=== PATIENT | male | born 1955 | race African-American/Black ===

== ENCOUNTER 2019-05-09 20:50 | Inpatient (IN) | payer OTHER ==
[2019-05-09] MEDS ORDERED: NACL 0.9% 3 ML SYG IV (22:00)
[2019-05-09] MEDS ORDERED: BISACODYL (EC) 5 MG TAB PO (22:00)
[2019-05-09] MEDS ORDERED: DOCUSATE SODIUM 100 MG CAP PO (22:00)
[2019-05-09] MEDS: HYDROmorphONE 0.5 MG/0.5 ML SYG IV (22:48)
[2019-05-09] MEDS: SOD CHLORIDE 0.9% 1,000 ML IV (22:48)
[2019-05-09] MEDS: VANCOMYCIN 1 GM (PMX) 250 ML IVPB (22:49)
[2019-05-09 23:20] LABS: ABNORMAL IP MESSAGE 1; HEMATOCRIT 35.8 % (42.0-52.0); HEMOGLOBIN 11.9 g/dl (14.0-18.0); MEAN CORPUSCULAR HEMOGLOBIN 29.7 pg (29.0-33.0); MEAN CORPUSCULAR HGB CONC 33.2 g/dl (32.0-37.0); MEAN CORPUSCULAR VOLUME 89.3 fl (82.0-101.0); MEAN PLATELET VOLUME 10.5 fl (7.4-10.4); PLATELET COUNT 163 10^3/UL (140-415); POSITIVE DIFF @See below; RED BLOOD COUNT 4.01 10^6/ul (4.70-6.10); RED CELL DISTRIBUTION WIDTH 15.7 % (11.5-14.5)
[2019-05-09 23:25] LABS: ADD MAN DIFF? YES
[2019-05-09 23:44] LABS: ETHANOL < 10.0 mg/dl (0-0)
[2019-05-09 23:50] LABS: ALANINE AMINOTRANSFERASE 94 IU/L (13-69); ALBUMIN 2.8 g/dl (3.3-4.9); ALBUMIN/GLOBULIN RATIO 1.07; ALKALINE PHOSPHATASE 59 IU/L (42-121); ANION GAP 7 (5-13); ASPARTATE AMINO TRANSFERASE 105 IU/L (15-46); BILIRUBIN,INDIRECT 0.4 mg/dl (0-1.1); BILIRUBIN,TOTAL 0.4 mg/dl (0.2-1.3); BLOOD UREA NITROGEN 35 mg/dl (7-20); CALCIUM 7.2 mg/dl (8.4-10.2); CARBON DIOXIDE 21 mmol/L (21-31); CHLORIDE 109 mmol/L (97-110); CREATININE 1.37 mg/dl (0.61-1.24); Estimated GFR > 60 mL/min (>60); GLUCOSE 86 mg/dl (70-220); MAGNESIUM 2.4 mg/dl (1.7-2.5); POTASSIUM 3.6 mmol/L (3.5-5.1); SODIUM 137 mmol/L (135-144); TOTAL PROTEIN 5.4 g/dl (6.1-8.1)
[2019-05-09 23:51] LABS: ADD UMIC YES; UR ASCORBIC ACID NEGATIVE (NEGATIVE); UR BILIRUBIN (Dip) NEGATIVE (NEGATIVE); UR BLOOD (Dip) 2+ mg/dL (NEGATIVE); UR CLARITY CLOUDY (CLEAR); UR COLOR YELLOW (YELLOW); UR GLUCOSE (Dip) NEGATIVE (NEGATIVE); UR KETONES (Dip) TRACE mg/dL (NEGATIVE); UR LEUKOCYTE ESTERASE (Dip) NEGATIVE Leu/ul (NEGATIVE); UR MUCUS FEW /HPF (NONE SEEN); UR NITRITE (Dip) NEGATIVE (NEGATIVE); UR RBC 0 /HPF (0-5); UR SPECIFIC GRAVITY (Dip) 1.009 (1.003-1.030); UR TOTAL PROTEIN (Dip) NEGATIVE (NEGATIVE); UR UROBILINOGEN (Dip) NEGATIVE (NEGATIVE); UR WBC 2 /HPF (0-5)
[2019-05-10 00:07] LABS: AMPHETAMINE/METHAMPHETAMINE Positive (NEGATIVE); ANISOCYTOSIS 2+ (0-0); BAND NEUTROPHILS #M 3.2 10^3/ul (0.0-0.6); BAND NEUTROPHILS % (M) 25 % (0-4); BARBITURATES Negative (NEGATIVE); BENZODIAZEPINES Negative (NEGATIVE); COCAINE Negative (NEGATIVE); GIANT THROMBO% (M) 1 % (0-0); LYMPHOCYTES #M 0.1 10^3/ul (0.8-2.9); LYMPHOCYTES % (M) 1 % (15-51); MONOCYTE #M 1.1 10^3/ul (0.3-0.9); MONOCYTES % (M) 9 % (0-11); OPIATES Positive (NEGATIVE); PLATELET ESTIMATE NORMAL; POIKILOCYTOSIS 3+ (0-0); POLYCHROMASIA 3+ (0-0); SEG NEUT #M 8.9 10^3/ul (1.6-7.5); SEGMENTED NEUTROPHILS (M) % 65 % (39-77); SMUDGE%M 3 % (0-0)
[2019-05-10 00:08] LABS: CANNABINOIDS Negative (NEGATIVE)
[2019-05-10 00:16] LABS: CREATINE KINASE 4278 IU/L (23-200)
[2019-05-10] MEDS ORDERED: LORAZEPAM 2 MG INJ IV (00:30)
[2019-05-10] MEDS: SOD CHLORIDE 0.9% 500 ML IV (02:39)
[2019-05-10] MEDS: PIPER-TAZO 3.375 GM IV (PMX) 100 ML IVPB ×6 (03:22→23:16)
[2019-05-10] MEDS: SOD CHLORIDE 0.9% 1,000 ML IV ×2 (03:50→08:22)
[2019-05-10] MEDS ORDERED: VANCOMYCIN IV PER PHARMACY XX (04:00)
[2019-05-10] MEDS: ALBUMIN HUMAN 25% 100 ML IV ×2 (05:45→07:00)
[2019-05-10] MEDS: HEPARIN 5,000 UNIT/1 ML VIAL SC ×3 (05:54→21:35)
[2019-05-10 06:23] LABS: ADD MAN DIFF? NO
[2019-05-10 06:27] LABS: BASOPHILS % 0.2 % (0.0-2.0); EOSINOPHILS # 0.1 10^3/ul (0.0-0.5); EOSINOPHILS % 0.8 % (0.0-7.0); HEMATOCRIT 34.8 % (42.0-52.0); HEMOGLOBIN 11.5 g/dl (14.0-18.0); LYMPHOCYTES # 0.6 10^3/ul (0.8-2.9); MEAN CORPUSCULAR HEMOGLOBIN 29.7 pg (29.0-33.0); MEAN CORPUSCULAR VOLUME 89.9 fl (82.0-101.0); MEAN PLATELET VOLUME 10.6 fl (7.4-10.4); MONOCYTE # 1.3 10^3/ul (0.3-0.9); MONOCYTES % 10.9 % (0.0-11.0); NEUTROPHIL # 10.2 10^3/ul (1.6-7.5); NEUTROPHILS % 82.6 % (39.0-77.0); PLATELET COUNT 165 10^3/UL (140-415); POSITIVE DIFF @See below; RED BLOOD COUNT 3.87 10^6/ul (4.70-6.10); RED CELL DISTRIBUTION WIDTH 15.8 % (11.5-14.5)
[2019-05-10 06:27] LABS: WHITE BLOOD COUNT 12.3 10^3/ul (4.8-10.8)
[2019-05-10 06:51] LABS: ALANINE AMINOTRANSFERASE 87 IU/L (13-69); ALBUMIN 2.7 g/dl (3.3-4.9); ALBUMIN/GLOBULIN RATIO 0.93; ALKALINE PHOSPHATASE 56 IU/L (42-121); ANION GAP 3 (5-13); ASPARTATE AMINO TRANSFERASE 83 IU/L (15-46); BILIRUBIN,INDIRECT 0.5 mg/dl (0-1.1); BILIRUBIN,TOTAL 0.5 mg/dl (0.2-1.3); BLOOD UREA NITROGEN 27 mg/dl (7-20); CALCIUM 7.3 mg/dl (8.4-10.2); CARBON DIOXIDE 24 mmol/L (21-31); CHLORIDE 110 mmol/L (97-110); CHOL/HDL RATIO 4.6 RATIO; CHOLESTEROL 116 mg/dl (100-200); CREATININE 1.32 mg/dl (0.61-1.24); Estimated GFR > 60 mL/min (>60); GLUCOSE 94 mg/dl (70-220); HDL CHOLESTEROL 25 mg/dl (30-78); LDL CHOLESTEROL,CALCULATED 42 mg/dl; MAGNESIUM 2.4 mg/dl (1.7-2.5); POTASSIUM 3.4 mmol/L (3.5-5.1); SODIUM 137 mmol/L (135-144); TOTAL PROTEIN 5.6 g/dl (6.1-8.1); TRIGLYCERIDES 247 mg/dl (0-149)
[2019-05-10 07:00] LABS: HEMOGLOBIN A1C 5.4 % (0-5.9)
[2019-05-10 07:14] LABS: THYROID STIMULATING HORMONE 0.684 MIU/L (0.465-4.680)
[2019-05-10] MEDS ORDERED: ENOXAPARIN 40 MG/0.4 ML SYG SC (09:00)
[2019-05-10 10:16] LABS: ANISOCYTOSIS 1+ (0-0); BAND NEUTROPHILS #M 3.4 10^3/ul (0.0-0.6); BAND NEUTROPHILS % (M) 28 % (0-4); GIANT THROMBO% (M) 5 % (0-0); LYMPHOCYTES #M 0.9 10^3/ul (0.8-2.9); LYMPHOCYTES % (M) 8 % (15-51); MONOCYTE #M 0.4 10^3/ul (0.3-0.9); MONOCYTES % (M) 4 % (0-11); PLATELET ESTIMATE NORMAL; REACTIVE LYMPHOCYTES #M 0.2 10^3/ul (0.0-0.0); REACTIVE LYMPHOCYTES% (M) 2 % (0-0); SEG NEUT #M 7.6 10^3/ul (1.6-7.5); SEGMENTED NEUTROPHILS (M) % 58 % (39-77); SMUDGE%M 4 % (0-0)
[2019-05-10 10:30] LABS: CREATINE KINASE 1555 IU/L (23-200)
[2019-05-10] MEDS: morphine 2 MG INJ IV ×2 (13:22→19:38)
[2019-05-10] MEDS ORDERED: LORAZEPAM 0.5 MG TAB PO (14:00)
[2019-05-10] MEDS: THIAMINE 100 MG TAB PO (14:32)
[2019-05-10] MEDS: FOLIC ACID 1 MG TAB PO (14:33)
[2019-05-10] MEDS: POTASSIUM CHLORIDE 10 MEQ in SOD CHLORIDE 0.9% 1,000 ML IV ×3 (14:33→22:03)
[2019-05-10] MEDS: POTASSIUM CHLORIDE (SR) 20 MEQ TAB PO (14:33)
[2019-05-10] MEDS: VANCOMYCIN 750 MG (PMX) 250 ML IVPB (15:16)
[2019-05-10] MEDS ORDERED: BENZOCAINE 10% 7 GM GEL MM (21:00)
[2019-05-10 22:51] LABS: CREATINE KINASE 1181 IU/L (23-200)
[2019-05-10] MEDS: BENZOCAINE 10% 7 GM GEL MM (23:00)
[2019-05-11] MEDS: VANCOMYCIN 750 MG (PMX) 250 ML IVPB ×2 (03:11→15:36)
[2019-05-11] MEDS: POTASSIUM CHLORIDE 10 MEQ in SOD CHLORIDE 0.9% 1,000 ML IV ×4 (05:10→20:46)
[2019-05-11] MEDS: PIPER-TAZO 3.375 GM IV (PMX) 100 ML IVPB ×5 (05:15→23:39)
[2019-05-11] MEDS: HEPARIN 5,000 UNIT/1 ML VIAL SC ×2 (05:32→15:48)
[2019-05-11] MEDS: ACETAMINOPHEN 325 MG TAB PO (05:41)
[2019-05-11 07:10] LABS: ADD MAN DIFF? NO
[2019-05-11 07:23] LABS: BASOPHILS % 0.2 % (0.0-2.0); EOSINOPHILS # 0.3 10^3/ul (0.0-0.5); EOSINOPHILS % 2.3 % (0.0-7.0); HEMATOCRIT 31.1 % (42.0-52.0); HEMOGLOBIN 10.3 g/dl (14.0-18.0); LYMPHOCYTES # 1.1 10^3/ul (0.8-2.9); LYMPHOCYTES % 9.1 % (15.0-51.0); MEAN CORPUSCULAR HEMOGLOBIN 29.7 pg (29.0-33.0); MEAN CORPUSCULAR HGB CONC 33.1 g/dl (32.0-37.0); MEAN CORPUSCULAR VOLUME 89.6 fl (82.0-101.0); MEAN PLATELET VOLUME 10.7 fl (7.4-10.4); MONOCYTE # 1.2 10^3/ul (0.3-0.9); MONOCYTES % 9.9 % (0.0-11.0); NEUTROPHIL # 9.4 10^3/ul (1.6-7.5); NEUTROPHILS % 77.8 % (39.0-77.0); PLATELET COUNT 151 10^3/UL (140-415); POSITIVE DIFF @See below; RED BLOOD COUNT 3.47 10^6/ul (4.70-6.10); RED CELL DISTRIBUTION WIDTH 15.9 % (11.5-14.5)
[2019-05-11 07:41] LABS: ALANINE AMINOTRANSFERASE 63 IU/L (13-69); ALBUMIN 2.9 g/dl (3.3-4.9); ALBUMIN/GLOBULIN RATIO 1.16; ALKALINE PHOSPHATASE 43 IU/L (42-121); ANION GAP 3 (5-13); ASPARTATE AMINO TRANSFERASE 47 IU/L (15-46); BILIRUBIN,INDIRECT 1.1 mg/dl (0-1.1); BILIRUBIN,TOTAL 1.1 mg/dl (0.2-1.3); BLOOD UREA NITROGEN 12 mg/dl (7-20); CALCIUM 8.1 mg/dl (8.4-10.2); CARBON DIOXIDE 24 mmol/L (21-31); CHLORIDE 111 mmol/L (97-110); CREATININE 1.15 mg/dl (0.61-1.24); Estimated GFR > 60 mL/min (>60); GLUCOSE 94 mg/dl (70-220); POTASSIUM 3.6 mmol/L (3.5-5.1); SODIUM 138 mmol/L (135-144); TOTAL PROTEIN 5.4 g/dl (6.1-8.1)
[2019-05-11] MEDS: FOLIC ACID 1 MG TAB PO (09:49)
[2019-05-11] MEDS: THIAMINE 100 MG TAB PO (09:49)
[2019-05-11 10:46] LABS: ANISOCYTOSIS 1+ (0-0); BAND NEUTROPHILS #M 1.5 10^3/ul (0.0-0.6); BAND NEUTROPHILS % (M) 13 % (0-4); EOSINOPHILS % (M) 2 % (0-7); LYMPHOCYTES #M 1.6 10^3/ul (0.8-2.9); LYMPHOCYTES % (M) 14 % (15-51); MONOCYTE #M 0.9 10^3/ul (0.3-0.9); MONOCYTES % (M) 8 % (0-11); MYELOCYTES #M 0.1 10^3/ul (0.0-0.0); MYELOCYTES % (M) 1 % (0-0); PLATELET ESTIMATE NORMAL; REACTIVE LYMPHOCYTES #M 0.1 10^3/ul (0.0-0.0); REACTIVE LYMPHOCYTES% (M) 1 % (0-0); SEG NEUT #M 7.6 10^3/ul (1.6-7.5); SEGMENTED NEUTROPHILS (M) % 62 % (39-77); SMUDGE%M 46 % (0-0)
[2019-05-11 11:44] LABS: CREATINE KINASE 695 IU/L (23-200)
[2019-05-11] MEDS ORDERED: ZINC SULFATE 220 MG CAP (18:20)
[2019-05-11] MEDS: ZINC SULFATE 220 MG CAP PO (18:23)
[2019-05-11] MEDS: NICOTINE (14 MG/24 HR) PATCH TRANSDERM (18:30)
[2019-05-11] MEDS: morphine 2 MG INJ IV ×2 (18:50→23:23)
[2019-05-11] MEDS: ISOSORBIDE DINITRATE 10 MG TAB PO (20:45)
[2019-05-11] MEDS: FAMOTIDINE 20 MG TAB PO (20:45)
[2019-05-11] MEDS: TAMSULOSIN (SR) 0.4 MG CAP PO (20:45)
[2019-05-11] MEDS ORDERED: ISOSORBIDE PO (21:00)
[2019-05-12] MEDS: VANCOMYCIN 750 MG (PMX) 250 ML IVPB ×2 (04:30→15:39)
[2019-05-12 04:59] LABS: ADD MAN DIFF? NO
[2019-05-12 05:04] LABS: BASOPHILS % 0.3 % (0.0-2.0); EOSINOPHILS # 0.4 10^3/ul (0.0-0.5); EOSINOPHILS % 4.3 % (0.0-7.0); HEMATOCRIT 30.5 % (42.0-52.0); HEMOGLOBIN 10.1 g/dl (14.0-18.0); LYMPHOCYTES # 1.9 10^3/ul (0.8-2.9); LYMPHOCYTES % 19.4 % (15.0-51.0); MEAN CORPUSCULAR HEMOGLOBIN 29.5 pg (29.0-33.0); MEAN CORPUSCULAR HGB CONC 33.1 g/dl (32.0-37.0); MEAN CORPUSCULAR VOLUME 89.2 fl (82.0-101.0); MEAN PLATELET VOLUME 10.6 fl (7.4-10.4); MONOCYTE # 1.2 10^3/ul (0.3-0.9); MONOCYTES % 11.8 % (0.0-11.0); NEUTROPHIL # 6.3 10^3/ul (1.6-7.5); NEUTROPHILS % 63.6 % (39.0-77.0); PLATELET COUNT 162 10^3/UL (140-415); POSITIVE DIFF @See below; RED BLOOD COUNT 3.42 10^6/ul (4.70-6.10); RED CELL DISTRIBUTION WIDTH 15.7 % (11.5-14.5)
[2019-05-12 05:04] LABS: WHITE BLOOD COUNT 9.9 10^3/ul (4.8-10.8)
[2019-05-12 05:21] LABS: INR 0.93; PROTIME 12.6 Sec (11.9-14.9)
[2019-05-12] MEDS: PIPER-TAZO 3.375 GM IV (PMX) 100 ML IVPB ×3 (05:42→18:40)
[2019-05-12 05:43] LABS: ALANINE AMINOTRANSFERASE 57 IU/L (13-69); ALBUMIN 2.8 g/dl (3.3-4.9); ALBUMIN/GLOBULIN RATIO 1.07; ALKALINE PHOSPHATASE 43 IU/L (42-121); ANION GAP 2 (5-13); ASPARTATE AMINO TRANSFERASE 36 IU/L (15-46); BILIRUBIN,INDIRECT 0.8 mg/dl (0-1.1); BILIRUBIN,TOTAL 0.8 mg/dl (0.2-1.3); BLOOD UREA NITROGEN 6 mg/dl (7-20); CALCIUM 8.4 mg/dl (8.4-10.2); CARBON DIOXIDE 26 mmol/L (21-31); CHLORIDE 112 mmol/L (97-110); CREATININE 1.02 mg/dl (0.61-1.24); Estimated GFR > 60 mL/min (>60); GLUCOSE 91 mg/dl (70-220); POTASSIUM 3.5 mmol/L (3.5-5.1); SODIUM 140 mmol/L (135-144); TOTAL PROTEIN 5.4 g/dl (6.1-8.1)
[2019-05-12 05:44] LABS: PHOSPHORUS 2.2 mg/dl (2.5-4.9)
[2019-05-12] MEDS: ZINC SULFATE 220 MG CAP PO (09:54)
[2019-05-12] MEDS: FAMOTIDINE 20 MG TAB PO (09:54)
[2019-05-12] MEDS: THIAMINE 100 MG TAB PO (09:54)
[2019-05-12] MEDS: FOLIC ACID 1 MG TAB PO (09:54)
[2019-05-12] MEDS: ASPIRIN (EC) 81 MG TAB PO (09:55)
[2019-05-12] MEDS: ENOXAPARIN 30 MG/0.3 ML SYG SC (10:01)
[2019-05-12] MEDS: POTASSIUM CHLORIDE 10 MEQ in SOD CHLORIDE 0.9% 1,000 ML IV (10:13)
[2019-05-12] MEDS: ISOSORBIDE DINITRATE 10 MG TAB PO ×3 (10:13→20:26)
[2019-05-12] MEDS: morphine 2 MG INJ IV (15:33)
[2019-05-12] MEDS: NICOTINE (14 MG/24 HR) PATCH TRANSDERM (18:30)
[2019-05-12] MEDS: TAMSULOSIN (SR) 0.4 MG CAP PO (20:25)
[2019-05-12] MEDS: PSYLLIUM 28% PACKET PO (20:30)
[2019-05-13] MEDS: PIPER-TAZO 3.375 GM IV (PMX) 100 ML IVPB ×5 (00:29→23:27)
[2019-05-13] MEDS: VANCOMYCIN 1 GM 250 ML IVPB ×2 (05:30→16:33)
[2019-05-13 05:34] LABS: WHITE BLOOD COUNT 10.7 10^3/ul (4.8-10.8)
[2019-05-13 05:34] LABS: ABNORMAL IP MESSAGE 1; HEMATOCRIT 31.2 % (42.0-52.0); HEMOGLOBIN 10.2 g/dl (14.0-18.0); MEAN CORPUSCULAR HEMOGLOBIN 29.7 pg (29.0-33.0); MEAN CORPUSCULAR HGB CONC 32.7 g/dl (32.0-37.0); MEAN PLATELET VOLUME 11.2 fl (7.4-10.4); PLATELET COUNT 198 10^3/UL (140-415); POSITIVE DIFF @See below; RED BLOOD COUNT 3.43 10^6/ul (4.70-6.10); RED CELL DISTRIBUTION WIDTH 15.6 % (11.5-14.5)
[2019-05-13 06:04] LABS: ALANINE AMINOTRANSFERASE 63 IU/L (13-69); ALBUMIN 2.8 g/dl (3.3-4.9); ALBUMIN/GLOBULIN RATIO 1.07; ALKALINE PHOSPHATASE 51 IU/L (42-121); ANION GAP 1 (5-13); ASPARTATE AMINO TRANSFERASE 37 IU/L (15-46); BILIRUBIN,INDIRECT 0.6 mg/dl (0-1.1); BILIRUBIN,TOTAL 0.6 mg/dl (0.2-1.3); BLOOD UREA NITROGEN 5 mg/dl (7-20); CALCIUM 8.2 mg/dl (8.4-10.2); CARBON DIOXIDE 29 mmol/L (21-31); CHLORIDE 109 mmol/L (97-110); CREATININE 0.86 mg/dl (0.61-1.24); Estimated GFR > 60 mL/min (>60); GLUCOSE 97 mg/dl (70-220); POTASSIUM 3.3 mmol/L (3.5-5.1); SODIUM 139 mmol/L (135-144); TOTAL PROTEIN 5.4 g/dl (6.1-8.1)
[2019-05-13 06:10] LABS: ADD MAN DIFF? YES
[2019-05-13 07:59] LABS: BAND NEUTROPHILS #M 0.1 10^3/ul (0.0-0.6); BAND NEUTROPHILS % (M) 1 % (0-4); BASOPHIL #M 0.1 10^3/ul (0.0-0.0); BASOPHILS % (M) 1 % (0-2); BURR CELLS 1+ (0-0); EOSINOPHILS % (M) 3 % (0-7); GIANT THROMBO% (M) 2 % (0-0); LYMPHOCYTES #M 2.7 10^3/ul (0.8-2.9); LYMPHOCYTES % (M) 26 % (15-51); MONOCYTE #M 1.9 10^3/ul (0.3-0.9); MONOCYTES % (M) 18 % (0-11); PLATELET ESTIMATE NORMAL; POIKILOCYTOSIS 1+ (0-0); REACTIVE LYMPHOCYTES #M 0.2 10^3/ul (0.0-0.0); REACTIVE LYMPHOCYTES% (M) 2 % (0-0); SEG NEUT #M 5.3 10^3/ul (1.6-7.5); SEGMENTED NEUTROPHILS (M) % 49 % (39-77); SMUDGE%M 4 % (0-0)
[2019-05-13] MEDS: ASPIRIN (EC) 81 MG TAB PO (09:58)
[2019-05-13] MEDS: ENOXAPARIN 30 MG/0.3 ML SYG SC (09:58)
[2019-05-13] MEDS: PSYLLIUM 28% PACKET PO ×2 (09:58→21:04)
[2019-05-13] MEDS: THIAMINE 100 MG TAB PO (09:58)
[2019-05-13] MEDS: FOLIC ACID 1 MG TAB PO (09:59)
[2019-05-13] MEDS: FAMOTIDINE 20 MG TAB PO (09:59)
[2019-05-13] MEDS: ZINC SULFATE 220 MG CAP PO (09:59)
[2019-05-13] MEDS: ISOSORBIDE DINITRATE 10 MG TAB PO ×2 (09:59→21:03)
[2019-05-13] MEDS: POTASSIUM CHLORIDE (SR) 20 MEQ TAB PO (12:04)
[2019-05-13] MEDS: morphine 2 MG INJ IV (14:00)
[2019-05-13] MEDS: CEPASTAT LOZENGE MT ×2 (16:49→18:08)
[2019-05-13] MEDS: NICOTINE (14 MG/24 HR) PATCH TRANSDERM (18:09)
[2019-05-13] MEDS: TAMSULOSIN (SR) 0.4 MG CAP PO (21:03)
[2019-05-13] MEDS: ACETAMINOPHEN 325 MG TAB PO (21:46)
[2019-05-14] MEDS: VANCOMYCIN 1 GM 250 ML IVPB ×2 (03:46→16:40)
[2019-05-14] MEDS: PIPER-TAZO 3.375 GM IV (PMX) 100 ML IVPB ×4 (05:58→23:55)
[2019-05-14] MEDS: FAMOTIDINE 20 MG TAB PO (09:43)
[2019-05-14] MEDS: FOLIC ACID 1 MG TAB PO (09:43)
[2019-05-14] MEDS: ZINC SULFATE 220 MG CAP PO (09:43)
[2019-05-14] MEDS: ASPIRIN (EC) 81 MG TAB PO (09:43)
[2019-05-14] MEDS: THIAMINE 100 MG TAB PO (09:44)
[2019-05-14] MEDS: ISOSORBIDE DINITRATE 10 MG TAB PO ×2 (09:44→20:50)
[2019-05-14] MEDS: PSYLLIUM 28% PACKET PO ×2 (09:45→20:52)
[2019-05-14] MEDS: ENOXAPARIN 30 MG/0.3 ML SYG SC (09:51)
[2019-05-14] MEDS: ACETAMINOPHEN 325 MG TAB PO (15:15)
[2019-05-14 16:52] LABS: VANCOMYCIN,TROUGH 13.2 ug/ml (10.0-20.0)
[2019-05-14] MEDS: NICOTINE (14 MG/24 HR) PATCH TRANSDERM (18:30)
[2019-05-14] MEDS: morphine 2 MG INJ IV (20:02)
[2019-05-14] MEDS: TAMSULOSIN (SR) 0.4 MG CAP PO (20:51)
[2019-05-14] MEDS: AL HYDROX/MG HYDROX/SIMETH 30 ML CUP PO (23:55)
[2019-05-15] MEDS: ACETAMINOPHEN 325 MG TAB PO (00:01)
[2019-05-15] MEDS: VANCOMYCIN 1 GM 250 ML IVPB ×2 (04:02→15:11)
[2019-05-15 05:34] LABS: ANION GAP 5 (5-13); BLOOD UREA NITROGEN 6 mg/dl (7-20); CALCIUM 8.6 mg/dl (8.4-10.2); CARBON DIOXIDE 29 mmol/L (21-31); CHLORIDE 108 mmol/L (97-110); CREATININE 1.01 mg/dl (0.61-1.24); Estimated GFR > 60 mL/min (>60); GLUCOSE 96 mg/dl (70-220); MAGNESIUM 2.2 mg/dl (1.7-2.5); PHOSPHORUS 3.8 mg/dl (2.5-4.9); SODIUM 142 mmol/L (135-144)
[2019-05-15 05:56] LABS: POTASSIUM 3.4 mmol/L (3.5-5.1)
[2019-05-15] MEDS: PIPER-TAZO 3.375 GM IV (PMX) 100 ML IVPB ×3 (06:12→18:00)
[2019-05-15] MEDS: ENOXAPARIN 30 MG/0.3 ML SYG SC (08:00)
[2019-05-15] MEDS: ISOSORBIDE DINITRATE 10 MG TAB PO ×2 (08:37→22:37)
[2019-05-15] MEDS: THIAMINE 100 MG TAB PO (08:37)
[2019-05-15] MEDS: FOLIC ACID 1 MG TAB PO (08:37)
[2019-05-15] MEDS: FAMOTIDINE 20 MG TAB PO (08:38)
[2019-05-15] MEDS: ZINC SULFATE 220 MG CAP PO (08:38)
[2019-05-15] MEDS: PSYLLIUM 28% PACKET PO ×2 (08:39→21:00)
[2019-05-15] MEDS: ASPIRIN (EC) 81 MG TAB PO (09:00)
[2019-05-15] MEDS: morphine 2 MG INJ IV ×2 (10:45→16:35)
[2019-05-15] MEDS: POTASSIUM CHLORIDE (SR) 20 MEQ TAB PO (14:51)
[2019-05-15] MEDS: NICOTINE (14 MG/24 HR) PATCH TRANSDERM (18:30)
[2019-05-15] MEDS ORDERED: PROPOFOL 20 ML (18:59)
[2019-05-15] MEDS ORDERED: MIDAZOLAM 1 MG/ML 2 ML INJ (18:59)
[2019-05-15] MEDS ORDERED: LIDOCAINE 2% (SDV) 5 ML INJ (18:59)
[2019-05-15] MEDS ORDERED: PROPOFOL 200 MG INJ (19:00)
[2019-05-15] MEDS ORDERED: MINERAL OIL LIGHT 10 ML VIAL (19:05)
[2019-05-15] MEDS ORDERED: ONDANSETRON 4 MG INJ (19:44)
[2019-05-15] MEDS ORDERED: EPHEDrine 25 MG/5 ML SYG (19:44)
[2019-05-15] MEDS ORDERED: PHENYLephrine (100 MCG/ML) 10ML SYG (19:44)
[2019-05-15] MEDS ORDERED: DEXAMETHASONE 4 MG/ML 5 ML INJ (19:44)
[2019-05-15] MEDS ORDERED: FAMOTIDINE 20 MG INJ (19:45)
[2019-05-15] MEDS ORDERED: HYDROmorphONE 2 MG/ML SYG (19:51)
[2019-05-15] MEDS: LIDOCAINE 1% (MPF) 30 ML INJ (20:05)
[2019-05-15] MEDS ORDERED: DIPHENHYDRAMINE 50 MG INJ IV (21:00)
[2019-05-15] MEDS ORDERED: HYDROmorphONE 1 MG/5 ML IV SYRINGE IV ×3 (21:00)
[2019-05-15] MEDS ORDERED: FENTAnyl 50 MCG/ML VIAL IV ×3 (21:00)
[2019-05-15] MEDS ORDERED: ONDANSETRON 4 MG INJ IV (21:00)
[2019-05-15] MEDS ORDERED: hydrALAzine 20 MG INJ IV (21:00)
[2019-05-15] MEDS ORDERED: LABETALOL HCL 20MG INJ IV (21:00)
[2019-05-15] MEDS ORDERED: MEPERIDINE 25 MG INJ IV (21:00)
[2019-05-15] MEDS ORDERED: PROCHLORPERAZINE 10 MG INJ IV (21:00)
[2019-05-15] MEDS: TAMSULOSIN (SR) 0.4 MG CAP PO (22:37)
[2019-05-16] MEDS: PIPER-TAZO 3.375 GM IV (PMX) 100 ML IVPB ×2 (00:06→05:46)
[2019-05-16] MEDS: VANCOMYCIN 1 GM 250 ML IVPB (03:39)
[2019-05-16] MEDS: ACETAMINOPHEN 325 MG TAB PO (03:45)
[2019-05-16] MEDS: PSYLLIUM 28% PACKET PO (09:00)
[2019-05-16] MEDS: ASPIRIN (EC) 81 MG TAB PO (09:26)
[2019-05-16] MEDS: ZINC SULFATE 220 MG CAP PO (09:26)
[2019-05-16] MEDS: FOLIC ACID 1 MG TAB PO (09:26)
[2019-05-16] MEDS: FAMOTIDINE 20 MG TAB PO (09:26)
[2019-05-16] MEDS: THIAMINE 100 MG TAB PO (09:26)
[2019-05-16] MEDS: ISOSORBIDE DINITRATE 10 MG TAB PO (09:28)
[2019-05-16] MEDS: ENOXAPARIN 30 MG/0.3 ML SYG SC (09:33)
[2019-05-16] MEDS: morphine 2 MG INJ IV (09:52)
== END 2019-05-16 15:35 | disposition home health service (06) | DRG 982 ==
LOC: TEL 20:50 → 2NE 05-15 18:40 → MS1 05-11 22:58
PROC: 0KBT0ZZ Excision of Left Lower Leg Muscle, Open Approach (ICD-10-PCS; principal; 2019-05-15 19:15)
PROC: 0KBS0ZZ Excision of Right Lower Leg Muscle, Open Approach (ICD-10-PCS; 2019-05-15 19:15)
DX: N17.0 Acute kidney failure with tubular necrosis (principal); M62.82 Rhabdomyolysis; L97.329 Non-pressure chronic ulcer of left ankle with unspecified severity; L97.319 Non-pressure chronic ulcer of right ankle with unspecified severity; L97.829 Non-pressure chronic ulcer of other part of left lower leg with unspecified severity; L97.819 Non-pressure chronic ulcer of other part of right lower leg with unspecified severity; F10.20 Alcohol dependence, uncomplicated; F15.10 Other stimulant abuse, uncomplicated; F17.200 Nicotine dependence, unspecified, uncomplicated; I10 Essential (primary) hypertension; I25.10 Atherosclerotic heart disease of native coronary artery without angina pectoris; E78.5 Hyperlipidemia, unspecified; K29.70 Gastritis, unspecified, without bleeding; D64.9 Anemia, unspecified; I87.2 Venous insufficiency (chronic) (peripheral); I73.9 Peripheral vascular disease, unspecified; R19.7 Diarrhea, unspecified; R60.9 Edema, unspecified; E86.0 Dehydration; Z95.1 Presence of aortocoronary bypass graft
CPT/HCPCS: 80048; 80053; 80061; 80202; 80307; 81001; 82306; 82550; 83036; 83735; 84100; 84443; 85025; 85610; 87040-91; 93922; 97110; 97162; 97530; 97542